=== PATIENT | female | born 1960 | race Caucasian/White ===

== ENCOUNTER 2019-10-27 16:01 | Emergency (ER) | payer MEDICARE ==
[2019-10-27] MEDS ORDERED: NS 0.9% 1000 ML** 1,000 ML IV ONE (16:16)
--- NOTE | 2019-10-27 16:19 | ED ---
Complex/Multi-Sys Presentation - HPI Summary HPI Summary: 59 year old F arriving via ambulance complains of fever and left arm pain x2 days. Patient denies cough, rhinorrhea, sore throat, nausea/vomiting/diarrhea. Symptoms rated 2/10 in severity. Symptoms aggravated by nothing. Symptoms alleviated by Tylenol. Medications reviewed. Allergies reviewed. Patient notes that she was placed on antibiotics by Dr. Aguirre for urinary symptoms. Started taking the antibiotics yesterday 10/26/2019 PM. Patient states she has also been taking Tylenol. - History Of Current Complaint Hx Obtained From: Patient Onset/Duration: Lasting Days - 2, Still Present Timing: Constant Severity Currently: Mild Aggravating Factor(s): Nothing Alleviating Factor(s): Nothing - Allergies/Home Medications Allergies/Adverse Reactions: Allergies Allergy/AdvReac Type Severity Reaction Status Date / Time No Known Allergies Allergy Verified 10/27/19 16:16 Home Medications: Home Medications Acetaminophen TAB* [Tylenol TAB*] 325 mg PO Q6H PRN 10/27/19 [History Confirmed 10/27/19] Baclofen TAB* [Lioresal TAB*] 10 mg PO TID PRN 10/27/19 [History Confirmed 10/27] Dalfampridine [Dalfampridine ER] 10 mg PO BID 10/27/19 [History Confirmed ] Dimethyl Fumarate(NF) [Tecfidera(NF)] 240 mg PO BID 10/27/19 [History Confirmed 10/27/19] Levothyroxine TAB* [Synthroid TAB*] 88 mcg PO DAILY 10/27/19 [History Confirmed 10/27/19] PMH/Surg Hx/FS Hx/Imm Hx Musculoskeletal History: Reports: Other Musculoskeletal History - MS - Cancer History Hx Chemotherapy: No Hx Radiation Therapy: No - Surgical History Surgery Procedure, Year, and Place: RIGHT BREAST LUMP REMOVED. hysterectomy 1999 Infectious Disease History: Denies: Traveled Outside the [place] in Last 30 Days Review of Systems Positive: Fever ENT: Negative - rhinorrhea Negative: Sore Throat Negative: Cough Negative: Vomiting, Diarrhea, Nausea Positive: Other - left arm pain All Other Systems Reviewed And Are Negative: Yes Physical Exam - Summary Physical Exam Summary: VITAL SIGNS: Reviewed. GENERAL: Patient is a well-developed and nourished FEMALE who is lying comfortable in the stretcher. Patient is not in any acute respiratory distress. HEAD AND FACE: No signs of trauma. No ecchymosis, hematomas or skull depressions. No sinus tenderness. EYES: PERRLA, EOMI x 2, No injected conjunctiva, no nystagmus. EARS: Hearing grossly intact. Ear canals and tympanic membranes are within normal limits. MOUTH: Oropharynx within normal limits. NECK: Supple, trachea is midline, no adenopathy, no JVD, no carotid bruit, no c- spine tenderness, neck with full ROM. CHEST: Symmetric, no tenderness at palpation. LUNGS: Clear to auscultation bilaterally. No wheezing or crackles. CVS: Regular rate and rhythm, S1 and S2 present, no murmurs or gallops appreciated. ABDOMEN: Soft, non-tender. No signs of distention. No rebound, no guarding, and no masses palpated. Bowel sounds are normal. EXTREMITIES: FROM in all major joints, no edema, no cyanosis or clubbing. NEURO: Alert and oriented x 3. No acute neurological deficits. Speech is normal and follows commands. SKIN: Dry and warm. Triage Information Reviewed: Yes Vital Signs Reviewed: Yes Procedures - Sedation Patient Received Moderate/Deep Sedation with Procedure: No Diagnostics - Laboratory Result Diagrams: 10/27/19 17:22 10/27/19 17:22 Lab Statement: Any lab studies that have been ordered have been reviewed, and results considered in the medical decision making process. - Radiology CXR Radiology Interpretation Completed By: Radiologist Summary of Radiographic Findings: LOW LUNG VOLUMES, SMALL POSSIBLE SMALL LEFT PLEURAL EFFUSION. ED physician has reviewed this report. - EKG 1647 Cardiac Rate: NL - 93 BPM EKG Rhythm: Sinus Rhythm Summary of EKG Findings: Sinus rhythm [address] elevations. Normal axis. Similar to previous EKG done on 07/29/11. ED physician has reviewed and interpreted this EKG. Complex Multi-Symp Course/Dx Assessment/Plan: 59 year old F arriving via ambulance complains of fever and left arm pain x2 days. Patient denies cough, rhinorrhea, sore throat, nausea/ vomiting/diarrhea. Symptoms rated 2/10 in severity. Symptoms aggravated by nothing. Symptoms alleviated by Tylenol. Medications reviewed. Allergies reviewed. Patient notes that she was placed on antibiotics by Dr. Aguirre for urinary symptoms. Started taking the antibiotics yesterday 10/26/2019 PM. Patient states she has also been taking Tylenol. In the ED course the patient was placed on a potline monitor, IV access was obtained, IV fluids started. Blood test w/o significant abnormality except for WBC 15.4, absolute neutrophils of 13.5. Potassium is 3.4, carbon dioxide is 21, glucose 125, AST is 41, CRP 163. Influenza A and B are negative and rapid strep is negative. Chest x-ray impression: low lung volumes, small possible small left pleural effusion. Patient was given one dose of Rocephin which will cover her Pneumonia and UTI. I discussed all the findings and test results with the patient. Patient was instructed to return to the emergency room immediately if any of the symptoms return or worsen. Plan of care was discussed with the patient and she understands and agrees. All questions were answered at patient satisfaction. There were no further complaints or concerns. Lung exam before discharge: CTA B/L. Good air exchange. No wheezing or crackles heard. CVS: S1 and S2 present. No murmurs appreciated. Patient is alert and oriented x 3. Patient is hemodynamically stable. Patient will be discharged home with follow up PCP in the next 2-3 days - Diagnoses Provider Diagnoses: Pneumonia, UTI (urinary tract infection) Discharge ED - Sign-Out/Discharge Documenting (check all that apply): Patient Departure - Discharge Plan Condition: Stable Disposition: HOME Prescriptions: Levofloxacin TAB* [Levaquin 500 Tab*] 500 mg PO DAILY #7 tab Patient Education Materials: Urinary Tract Infection in Women (ED), Pneumonia ( ED) Referrals: Ifeoma Soto MD [Primary Care Provider] - 3 Days Additional Instructions: Follow up with your primary care provider in 3 days. Return to the Emergency Department for new or worsening symptoms. - Billing Disposition and Condition Condition: STABLE Disposition: Home - Attestation Statements Document Initiated by Scribe: Yes Documenting Scribe: Sarah Bone Provider For Whom Rivka is Documenting (Include Credential): Brown Abbott MD Scribe Attestation: Sarah Valladares, scribed for Brown Abbott MD on 10/27/19 at 1855. Scribe Documentation Reviewed: Yes Provider Attestation: The documentation as recorded by the scribeSarah accurately reflects the service I personally performed and the decisions made by me, Brown Abbott MD Status of Scribe Document: Viewed
[2019-10-27 17:02] LABS: Rapid Strep Molecular Negative (Negative)
[2019-10-27 17:18] LABS: Influenza A Molecular Negative (Negative); Influenza B Molecular Negative (Negative)
[2019-10-27 17:29] LABS: ABS Basophils 0.1 10^3/ul (0-0.2); ABS Lymphocytes 0.3 10^3/ul (1.0-4.8); ABS Monocytes 1.5 10^3/ul (0-0.8); ABS Neutrophils 13.5 10^3/ul (1.5-7.7); Hematocrit 40 % (35-47); Hemoglobin 13.5 g/dL (12.0-16.0); Lymphocyte % 2.3 %; Mean Corpuscular HGB Conc 34 g/dL (31-36); Mean Corpuscular Hemoglobin 31 pg (27-31); Mean Corpuscular Volume 91 fL (80-97); Mean Platelet Volume 8.9 fL (7.4-10.4); Platelet Count 186 10^3/uL (150-450); Red Blood Count 4.45 10^6 /uL (3.70-4.87); Red Cell Distribution Width 14 % (10-15); White Blood Count 15.4 10^3/uL (3.5-10.8)
[2019-10-27 17:47] LABS: Albumin 3.9 g/dL (3.2-5.2); Albumin/Globulin Ratio 1.4 (1-3); C Reactive Protein 163.65 mg/L (<8.01); Calcium 9.1 mg/dL (8.6-10.3); EGFR Non-African American 101.6 (>60); Globulin 2.7 g/dL (2-4); Potassium 3.4 mmol/L (3.5-5.0); Total Bilirubin 0.5 mg/dL (0.2-1.0); Total Protein 6.6 g/dL (6.4-8.9)
[2019-10-27 17:48] LABS: Troponin I 0.01 ng/mL (<0.03)
[2019-10-27] MEDS ORDERED: cefTRIAXone(*) 1 GM in NS 0.9% 50 ML* 50 ML IVPB ONE (18:06)
[2019-10-27 19:39] LABS: Urine Appearance Cloudy; Urine Bilirubin Negative (Negative); Urine Blood 2+ (Negative); Urine Color Yellow; Urine Glucose Negative (Negative); Urine Ketones 1+ (Negative); Urine Nitrite Negative (Negative); Urine Protein 1+(30 mg/dL) (Negative); Urine Urobilinogen Negative (Negative)
[2019-10-27 19:44] LABS: Urine Bacteria 1+ (Absent); Urine Red Blood Cell 2+(6-10/hpf) (Absent); Urine Squamous Epithelial Cell Present (Absent); Urine White Blood Cell 3+(>20/hpf) (Absent)
[2019-10-27 19:55] VITALS: BP 140/100
== END 2019-10-27 19:47 | disposition home or self-care (01) ==
LOC: ED 16:01
DX: J18.9 Pneumonia, unspecified organism (principal); N39.0 Urinary tract infection, site not specified; E03.9 Hypothyroidism, unspecified; Z90.710 Acquired absence of both cervix and uterus; Z79.890 Hormone replacement therapy; Z79.899 Other long term (current) drug therapy
CPT/HCPCS: 36415; 71046; 80053; 81003; 81015; 83605; 84484; 85025; 86140; 87086; 87651; 93005; 96361; 96365; 99283; J0696

== ENCOUNTER 2019-11-13 15:09 | Emergency (ER) | payer MEDICARE ==
[2019-11-13 15:24] VITALS: BP 147/78
--- NOTE | 2019-11-13 15:26 | UC ---
Skin Complaint HPI - HPI Summary HPI Summary: Patient is a 59yo female presenting with for rash on right side of back and abdomen x3 days. Patient states is started as a single spot that has progressed. Notes "very little itching and mild tenderness." Denies pain. Denies any drainage from the area. Denies fever and chills. Denies n/v. Patient states that she recently had pneumonia and finished antibiotics approximately 10 days ago. Denies known drug allergies but is concerned she may have had a reaction. - History of Current Complaint Chief Complaint: UCRash Stated Complaint: SKIN COMPLAINT Hx Obtained From: Patient Pain Intensity: 1 Pain Scale Used: 0-10 Numeric - Allergy/Home Medications Allergies/Adverse Reactions: Allergies Allergy/AdvReac Type Severity Reaction Status Date / Time No Known Allergies Allergy Verified 11/13/19 15:18 Home Medications: Home Medications Cholecalciferol (Vitamin D3) [Vitamin D3] 5,000 mg PO BID 11/13/19 [History Confirmed 11/13/19] Estradiol PATCH 0.05MG/DAY* [Climara PATCH 0.05 MG/DAY*] 1 applic TOPICAL WEEKLY 11/13/19 [History Confirmed 11/13/19] Mirabegron [Myrbetriq] 1 tab PO DAILY 11/13/19 [History Confirmed 11/13/19] PMH/Surg Hx/FS Hx/Imm Hx - Surgical History Surgical History: Yes Surgery Procedure, Year, and Place: RIGHT BREAST LUMP REMOVED. hysterectomy 1999 - Social History Alcohol Use: None Substance Use Type: Other Substance Use Comment - Amount & Last Used: CBD oil Smoking Status (MU): Never Smoked Tobacco Review of Systems All Other Systems Reviewed And Are Negative: Yes Constitutional: Positive: Negative. Negative: Fever, Chills Skin: Positive: Rash - right side back and abdomen ENT: Positive: Negative Respiratory: Positive: Negative Cardiovascular: Positive: Negative Gastrointestinal: Positive: Negative Musculoskeletal: Positive: Negative Neurological/Mental Status: Positive: Negative Physical Exam - Summary Physical Exam Summary: Vital Signs Reviewed: Yes A+Ox3, no distress, well-appearing Eyes: Conjunctiva Clear ENT: Hearing grossly normal Neck: Positive: Supple Respiratory: Positive: No respiratory distress, No accessory muscle use + CTA throughout no w/r Cardiovascular: RRR nl s1, s2 no m/r Musculoskeletal Exam: LAMAR x 4 without difficulty Neurological: Positive: Alert, + sensation throughout Psychological: Positive: age appropriate behavior Skin: Positive: diffuse vesicular rash on erythematous base noted on right side of back extending to front of right side abdomen. vesicles 1-3mm. does not cross midline. blisters intact, nondraining. warmth to touch. no TTP Vital Signs: Initial Vital Signs Temp 98.3 F 11/13/19 15:13 Pulse 92 11/13/19 15:13 Resp 18 11/13/19 15:13 BP 147/78 11/13/19 15:13 Pulse Ox 96 11/13/19 15:13 Course/Dx - Course Course Of Treatment: Educated patient on shingles and symptomatic treatment. Discussed antivirals with patient who states she would prefer to take them at this time. I prescribed valtrex and instructed to follow up with pcp if symptoms worsen or do not resolve within 2 weeks. Patient voiced understanding and agreed with treatment plan. - Diagnoses Provider Diagnosis: Shingles rash Discharge ED - Sign-Out/Discharge Documenting (check all that apply): Patient Departure All imaging exams completed and their final reports reviewed: No Studies - Discharge Plan Condition: Stable Disposition: HOME Prescriptions: ValACYclovir (*) [Valtrex 1 GM(*)] 1 gm PO TID #30 tab Patient Education Materials: Shingles (ED) Referrals: Ifeoma Soto MD [Primary Care Provider] - If Needed Additional Instructions: Take Valtrex 3 times daily for the next 10 days for treatment of your shingles. You may take ibuprofen or tylenol for pain relief. Do not scratch the rash or purposefully rupture the blisters. The blisters are contagious, so keep the area covered. Keep the area clean, dry, and covered until fully resolved. Follow up with your primary care provider if symptoms worsen or do not resolve within 10-14 days. - Billing Disposition and Condition Condition: STABLE Disposition: Home
== END 2019-11-13 15:50 | disposition home or self-care (01) ==
LOC: UCEAST 15:09
DX: B02.9 Zoster without complications (principal)
CPT/HCPCS: 99202; G0463